=== PATIENT | male | born 1960 | race Caucasian/White ===

== ENCOUNTER 2023-12-04 16:14 | Emergency (ER) | payer OTHER, SELFPAY ==
--- NOTE | ~2023-12-04 | XR_ITS ---
EXAMINATION: XR LUMBOSACRAL SPINE CLINICAL INFORMATION: Fall, back pain COMPARISON: None available. TECHNIQUE: Three views of the lumbosacral spine. FINDINGS: The sagittal alignment is maintained. Vertebral body heights are maintained. No evidence of acute compression fractures. Multilevel disc degenerative changes, with disc height loss, endplate osteophytes. Right-sided osteophyte in the upper lumbar spine. Multilevel facet degeneration. Spinal stimulator device is noted. Visualized pelvic bones are intact. Extensive atherosclerotic vascular calcification. XR/XR lumbar spine 2-3V IMPRESSION: Moderate-severe multilevel disc degenerative changes. No radiographic evidence of acute fracture.
--- NOTE | ~2023-12-04 | CT_ITS ---
EXAMINATION: CT HEAD WITHOUT CONTRAST CT CERVICAL SPINE WITHOUT CONTRAST CLINICAL INFORMATION: Fall. Potential head strike and loss of consciousness. COMPARISON: None available. TECHNIQUE: Contiguous axial imaging was performed from the skull base to vertex without intravenous administration of contrast. Contiguous axial imaging was performed from the upper chest through the skull base without intravenous administration of contrast. Coronal and sagittal reformats were obtained at the acquisition workstation. This CT examination was performed using dose optimization techniques as appropriate, variously including the following: *Automated exposure control. *Adjustment of mA and/or kV according to patient size (this includes techniques or standardized protocols for targeted exams where dose is matched to indication/reason for exam; i.e. extremities or head). *Use of iterative reconstruction technique. DLP: 918 mGy-cm FINDINGS: Head: There is no evidence of acute intracranial hemorrhage or edematous territorial infarction. Mccarthy-white matter differentiation is preserved. Scattered and partially confluent hypoattenuation in the periventricular and deep white matter are consistent with moderate microangiopathy. Proportional prominence of the ventricles and sulcal spaces without evidence of obstructive hydrocephalus. No abnormal mass effect or midline shift. No extra-axial fluid collections. No acute soft tissue or osseous abnormalities. Mild mucosal thickening of the paranasal sinuses. Small right-sided mastoid effusion. Left-sided mastoid air cells and middle ear cavity are clear. Cervical Spine: The atlantooccipital and atlantoaxial articulations remain well aligned. Straightening of the normal cervical lordosis. Mild degenerative stepwise anterolistheses of C2-C4. Mild degenerative stepwise retrolistheses of C5-C7. Otherwise, there is anatomic alignment of the vertebral bodies and posterior elements. No evidence of acute fracture or subluxation. The vertebral body heights are maintained. Advanced degenerative disc disease at C3-C4 and from C5-T1. Facet and uncovertebral joint arthropathy leads to osseous encroachment on the neural foramina from C3-T1. There is no prevertebral soft tissue swelling. The thyroid gland and remaining cervical soft tissues are within normal limits. The lung apices demonstrate no abnormalities. CT/CT cervical spine wo IV con IMPRESSION: 1. No evidence of acute intracranial hemorrhage or edematous territorial infarction. Moderate underlying microangiopathy and generalized cerebral volume loss. 2. No evidence of acute fracture or traumatic subluxation of the cervical spine. Moderate multilevel degenerative spondyloarthropathy of the cervical spine.
--- NOTE | ~2023-12-04 | CT_ITS ---
EXAMINATION: CT ABDOMEN AND PELVIS WITH CONTRAST CLINICAL INFORMATION: Fall. Left flank pain. Clinical concern regarding splenic injury. COMPARISON: None available. TECHNIQUE: Multidetector volumetric images were obtained from the superior aspect of the liver through the pubic symphysis following administration 85 mL of Omnipaque 350 intravenous contrast. Sagittal and coronal reformatted images were obtained on the technologist's workstation. Oral contrast: No This CT examination was performed using dose optimization techniques as appropriate, variously including the following: *Automated exposure control *Adjustment of mA and/or kV according to patient size (this includes techniques or standardized protocols for targeted exams where dose is matched to indication/reason for exam; i.e. extremities or head) *Use of iterative reconstruction technique DLP: 359 mGy-cm FINDINGS: LUNG BASES: There are a few nonspecific reticular lung base opacities. Fat protrudes through the esophageal hiatus. LIVER, GALLBLADDER, AND BILIARY TREE: No evidence of liver injury. No focal liver lesion. The gallbladder is not demonstrated. The common duct is mildly prominent but there is no opaque duct calculus PANCREAS: No evidence of a pancreatic injury or peripancreatic fluid SPLEEN: No evidence of a splenic injury. No focal abnormality ADRENAL GLANDS: Within normal limits KIDNEYS AND URETERS: There is a 0.7 cm nonobstructing mid left renal calculus 7.7 cm from the skin BLADDER: No evidence of bladder injury. The bladder wall thickening is at least partially related to incomplete distention GASTROINTESTINAL TRACT: There is a oval low attenuating structure dorsal to the distal rectum. This is of uncertain etiology. A duplication cyst could give this appearance. Equivocal extension to the sacrococcygeal spine. No evidence of bowel injury. The appendix is normal. These stomach is moderately distended. The hepatic flexure is collapsed perhaps physiologic. ABDOMINAL WALL: There is a power generator in the left gluteal soft tissues with leads projecting into the spinal canal. There is no abdominal wall hernia. LYMPH NODES: There are no enlarged lymph nodes. VASCULAR: There is no abdominal aortic aneurysm. There is arterial calcification. The portal vein enhances. PELVIC VISCERA: No suspicious abnormality OSSEOUS STRUCTURES: No suspicious focal lesion. Degenerative changes in the spine. CT/CT abdomen pelvis w IV con IMPRESSION: No splenic injury. No hematoma in the left upper quadrant. Incidental nonobstructing left renal calculus. Fleischner guidelines were followed.
[2023-12-04 17:22] VITALS: BP 93/58; PULSE 80; RESP 18; TEMP 37.1; O2SAT 100; BMI 20.8
--- NOTE | 2023-12-04 17:23 | ED_ITS ---
HPI - General Adult General Chief complaint: General Medical Stated complaint: abd and lower back pain Time Seen by Provider: 12/04/23 17:53 Source: patient Mode of arrival: ambulatory Limitations: no limitations History of Present Illness HPI narrative: Patient is status post liver transplant in 1989 still drinks occasionally been drinking last 2 days has problem in walking uses cane or walker last night patient was in the basement in the dark was trying to come out to turn on the light tripped and fell landed on his back of back pain no head injury no loss of consciousness according to patient patient does not have problem with drinking and just had few beers Related Data Allergies Allergy/AdvReac Type Severity Reaction Status Date / Time morphine Allergy Unknown Verified 12/04/23 17:32 Review of Systems 2 Review of Systems: Yes all other systems are reviewed and are negative [facility] Past Medical History Surgical History (Updated 12/04/23 @ 21:59 by Dg Fernández MD) Liver transplant recipient Social History Social History Alcohol intake: current Alcohol intake frequency: a few times a week Alcohol type: beer Smoked in Last 30 Days: Yes Use of substances other than those prescribed or required for medical reasons: No Advance Directives: No Advance Directives Information Provided: No Physical Exam ED Vital Signs: Vital Signs - 24 hr 12/04/23 17:22 12/04/23 18:23 Temperature 98.7 F Pulse Rate 80 64 Respiratory Rate 18 14 Blood Pressure 93/58 L 99/65 Pulse Oximetry 100 99 Oxygen Delivery Method Room Air Room Air BMI result Body Mass Index 20.8 Appearance: Alert. Oriented X3. No acute distress. etoh+ Eyes: No pallor or icterus ENT: Pharynx normal. Oral Mucosa moist Neck: Normal inspection. Neck supple. CVS: Normal heart rate and rhythm. Pulses normal. Respiratory: No respiratory distress. Equal air entry bilateral, no wheezing/rales/rhonchi Abdomen: Soft and nontender. Bowel sounds are present, no mass palpable, no CVA tenderness Skin: Skin warm and dry. Normal skin color. Normal skin turgor. back: Diffuse tenderness to the left side no focal spine tenderness SLR negative bilaterally good range of movement Extremities: No lower extremity edema. No calf tenderness Neuro: Oriented X 3. No motor deficit. No sensory deficit.No cerebellar signs , cranial nerves II-XII intact Course Course Course Narrative: This is a rapid medical exam: Additional HPI, ROS, PE not included below will be deferred to primary provider. Patient is a 62-year-old male with history of liver transplant presenting to the ED with complaint of low back pain as well as abdominal pain. Reports issues with balance at baseline ever since the transplant, fell in basement last night. Unsure if he hit his head or lost consciousness after the fall. Abdominal pain has been for the past week, describes as diffuse. Reports diarrhea, denies vomiting. Plan: CT head and c-spine, lumbar xray, labs, UA, viral swabs Medications Administered Discontinued Medications Generic Name Dose Route Start Last Admin Trade Name Freq PRN Reason Stop Dose Admin Hydromorphone HCl 2 mg 12/04/23 18:47 12/04/23 19:25 Hydromorphone Hcl 2 Mg/Ml Vial IVPUSH 12/04/23 18:48 2 mg ONCE ONE Administration Protocol Sodium Chloride 1,000 mls @ 999 mls/hr 12/04/23 18:44 12/04/23 19:06 Ns IV 12/04/23 19:44 999 mls/hr .Q1H1M ONE Administration Magnesium Sulfate 2 gm in 50 mls @ 150 mls/hr 12/04/23 18:44 12/04/23 19:55 Magnesium Sulfate/H2o IV 12/04/23 19:03 Infused ONCE ONE Infusion Iohexol 100 ml 12/04/23 19:16 12/04/23 19:16 Iohexol 350 Mg/Ml 100 Ml Infus..Btl IV 12/04/23 19:17 85 ml ONCE ONE Administration Ondansetron HCl 4 mg 12/04/23 18:44 12/04/23 19:25 Ondansetron Hcl 4 Mg/2 Ml Vial IVPUSH 12/04/23 18:45 4 mg ONCE ONE Administration Medical Decision Making Medical Decision Making [facility] Narrative: Patient alcoholic status post liver transplant fell last night complaining of diffuse lower back pain CT scan of the negative CT head C-spine negative patient ambulate in the ER discharge patient home advised not drink alcohol Differential Diagnosis Differential Diagnoses: The differential diagnosis associated with the presentation includes As above Lab Data [facility] Lab Attestation statement: I reviewed the patient's lab results. 12/04/23 17:39 12/04/23 17:39 Labs: Lab Results 12/04/23 12/04/23 Range/Units 17:39 18:31 WBC 4.7 L (4.8-10.8) X10*3/uL RBC 3.38 L (4.60-5.80) X10*6/uL Hgb 12.5 L (14.0-18.0) g/dl Hct 36.3 L (42.0-52.0) % MCV 107.4 H (80.0-98.0) fL MCH 37.0 H (27.0-33.0) pg MCHC 34.4 (31.0-36.0) g/dl RDW 14.8 (11.0-16.0) % Plt Count 152 L (160-400) X10*3/uL MPV 9.7 (9.4-12.4) fL Immature Gran % (Auto) 0.2 (0.0-0.4) % Neut % (Auto) 47.7 (45-73) % Lymph % (Auto) 40.3 H (20-40) % Cottle % (Auto) 8.6 (2-11) % Eos % (Auto) 1.9 (0-4) % Baso % (Auto) 1.3 (0-2) % Lymph # (Auto) 1.9 (1.2-4.9) X10*3/uL Cottle # (Auto) 0.4 (0.1-1.2) X10*3/uL Eos # (Auto) 0.1 (0.0-0.4) X10*3/uL Baso # (Auto) 0.1 (0.0-0.2) X10*3/uL Abs Immat Gran (auto) 0.01 (0.00-0.03) X10*3/uL Absolute Neuts (auto) 2.2 (2.0-8.3) x10*3/uL Absolute Nucleated RBC 0.000 (0.0-0.012) X10*3/uL Nucleated RBC % (auto) 0.0 (0.0-0.2) /100WBC PT 16.0 H (11.1-13.3) SEC INR 1.3 H (0.9-1.1) Sodium 139 (135-145) mmol/L Potassium 3.3 (3.3-5.1) mmol/L Chloride 107 (96-108) mmol/L Carbon Dioxide 24 (22-29) mmol/L Anion Gap 11 L (12-20) BUN 20 H (9-16) mg/dL Creatinine 1.23 (0.5-1.4) mg/dL Estim Creat Clear Calc 57.1 Estimated GFR 59 Random Glucose 114 (60-115) mg/dL Calcium 8.2 L (8.4-10.2) mg/dL Magnesium 1.5 L (1.6-2.6) mg/dL Total Bilirubin 1.3 H (0.0-1.0) mg/dL AST 197 H (5-37) U/L ALT 93 H (0-40) U/L Alkaline Phosphatase 281 H (39-117) U/L Total Protein 6.4 L (6.5-8.0) g/dL Albumin 3.1 L (3.5-5.0) g/dL Urine Color Dark Yellow Urine Appearance Clear Urine pH 5.5 (5.0-9.0) Ur Specific [place] 1.025 (1.005-1.025) Urine Protein Negative (Neg-Trace) mg/dL Urine Glucose (UA) Negative (Negative) mg/dL Urine Ketones Trace (Negative) mg/dL Urine Blood Negative (Negative) Urine Nitrite Negative (Negative) Ur Leukocyte Esterase Negative (Negative) Urine Opiates Screen Not Detected (Not Detect) Urine Fentanyl Screen Not Detected (Not Detect) Ur Barbiturates Screen Not Detected (Not Detect) Ur Phencyclidine Scrn Not Detected (Not Detect) Ur Amphetamines Screen Not Detected (Not Detect) U Benzodiazepines Scrn Not Detected (Not Detect) Urine Cocaine Screen Not Detected (Not Detect) U Marijuana (THC) Screen POSITIVE H (Not Detect) Ethyl Alcohol 275 mg/dL Influenza Type A (PCR) NEGATIVE (Negative) Influenza Type B (PCR) NEGATIVE (Negative) RSV RNA Qual (PCR) NEGATIVE (Negative) SARS-CoV-2 RNA (RT-PCR) NEGATIVE (Negative) Independent Interpretation I performed an independent interpretation of an: CT Scan Radiology Impression Discussion of test interpretation with radiology: I have reviewed the radiologist's reading. Discharge Plan Discharge Clinical Impression: Back pain, Alcohol abuse Patient Disposition: Home, Self-Care Instructions: Abuse of Alcohol (ED), Chronic Back Pain (DC) Additional Instructions: Continue your medications and stop drinking alcohol
--- NOTE | 2023-12-04 17:32 | PC.NURSE ---
pt unable to appropriately answer questions in triage, continues to state that he is in too much pain to answer questions. reports he has more allergies but is unable to think of them at this time
[2023-12-04 17:45] LABS: Basophils Absolute Auto 0.1 X10*3/uL (0.0-0.2); Basophils Percent Auto 1.3 % (0-2); Eosinophils Absolute Auto 0.1 X10*3/uL (0.0-0.4); Eosinophils Percent Auto 1.9 % (0-4); Hematocrit 36.3 % (42.0-52.0); Hemoglobin 12.5 g/dl (14.0-18.0); Imm Gran Abs Auto 0.01 X10*3/uL (0.00-0.03); Imm Gran Pct Auto 0.2 % (0.0-0.4); Lymphocytes Absolute Auto 1.9 X10*3/uL (1.2-4.9); Lymphocytes Percent Auto 40.3 % (20-40); MANUAL DIFF FLAG NO; Mean Corpuscular HGB Conc 34.4 g/dl (31.0-36.0); Mean Corpuscular Volume 107.4 fL (80.0-98.0); Mean Platelet Volume 9.7 fL (9.4-12.4); Monocytes Absolute Auto 0.4 X10*3/uL (0.1-1.2); Monocytes Percent Auto 8.6 % (2-11); Neutrophils Absolute Auto 2.2 x10*3/uL (2.0-8.3); Neutrophils Percent Auto 47.7 % (45-73); Platelet Count 152 X10*3/uL (160-400); Red Blood Count 3.38 X10*6/uL (4.60-5.80); Red Cell Distribution Width 14.8 % (11.0-16.0); White Blood Count 4.7 X10*3/uL (4.8-10.8)
[2023-12-04 18:00] LABS: Alanine Aminotransferase 93 U/L (0-40); Albumin Level 3.1 g/dL (3.5-5.0); Alkaline Phosphatase 281 U/L (39-117); Anion Gap 11 (12-20); Aspartate Amino Transferase 197 U/L (5-37); Bilirubin Total 1.3 mg/dL (0.0-1.0); Blood Urea Nitrogen 20 mg/dL (9-16); Calcium 8.2 mg/dL (8.4-10.2); Carbon Dioxide 24 mmol/L (22-29); Chloride 107 mmol/L (96-108); Creatinine Clr Calc Pharmacy 57.1; Estimated Glomerular Filt Rate 59; Ethanol 275 mg/dL; Glucose Random 114 mg/dL (60-115); Magnesium 1.5 mg/dL (1.6-2.6); Potassium 3.3 mmol/L (3.3-5.1); Sodium 139 mmol/L (135-145); Total Protein 6.4 g/dL (6.5-8.0)
[2023-12-04 18:22] LABS: Influenza A PCR NEGATIVE (Negative); Influenza B PCR NEGATIVE (Negative); Resp Syncy Virus RNA Qual PCR NEGATIVE (Negative); SARS COV2 PCR INHOUSE NEGATIVE (Negative)
[2023-12-04 18:23] VITALS: BP 99/65; PULSE 64; RESP 14; O2SAT 99
[2023-12-04 18:35] LABS: INTERNATIONAL NORM RATIO 1.3 (0.9-1.1)
--- NOTE | 2023-12-04 18:36 | PC.NURSE ---
Patient states he fell last night in his basement on his back thing and is experiencing 10/10 back pain. Patient smells of alcohol, when asked how much alcohol he drank today patient states, like 4 beers last night and like one beer and one shot today
[2023-12-04 18:41] LABS: Appearance Urine Clear; Color Urine Dark Yellow; Glucose Urine UA Negative (Negative); Leukocyte Esterase Urine Negative (Negative); Nitrite Urine Negative (Negative); PH 5.5 (5.0-9.0); Specific Gravity - Urine 1.025 (1.005-1.025); Urine Blood Negative (Negative); Urine Ketones Trace mg/dL (Negative); Urine Protein Negative (Neg-Trace)
[2023-12-04 18:46] LABS: Amphetamine Screen Urine Not Detected (Not Detect); Barbiturates, Urine Not Detected (Not Detect); Benzodiazepines Screen Urine Not Detected (Not Detect); Cannabinoid Screen Urine POSITIVE (Not Detect); Cocaine Screen Urine Not Detected (Not Detect); Fentanyl, urine Not Detected (Not Detect); Opiate Screen Urine Not Detected (Not Detect); Phencyclidine Screen Urine Not Detected (Not Detect)
[2023-12-04] MEDS: 0.9 % Sodium Chloride 1,000 ML 999 ML IV (19:06)
[2023-12-04] MEDS: iohexoL 350 MG/ML 100 ML INFUS..BTL IV (19:16)
--- NOTE | 2023-12-04 19:16 | PC.NURSE ---
This RN assumed pt care @ 1900. Pt with CT. Plan of care ongoing.
[2023-12-04] MEDS: HYDROmorphone HCl 2 MG/ML VIAL IVPUSH (19:25)
[2023-12-04] MEDS: ondansetron HCL 4 MG/2 ML VIAL IVPUSH (19:25)
[2023-12-04] MEDS: Magnesium Sulfate/H2O 2 GM/50 ML PIGGYBACK IV (19:26)
--- NOTE | 2023-12-04 19:32 | PC.NURSE ---
Pt medicated per nov. Plan of care ongoing.
--- NOTE | 2023-12-04 23:55 | PC.NURSE ---
Pt continuously attempting to get out of bed and leave. Pt intoxicated and unsteady on his feet. Pt redirected back into bed by RN's and ore charger. Plan of care ongoing.
[2023-12-05 03:34] VITALS: BP 117/63; PULSE 80; RESP 12; TEMP 36.8; O2SAT 97
[2023-12-05 03:37] VITALS: BP 117/63; PULSE 81; RESP 16; TEMP 36.8; O2SAT 99
== END 2023-12-05 03:38 | disposition home or self-care (01) ==
PROVIDERS: Registered Nurse Emergency; Emergency Provider Internal Medicine; PCP Internal Medicine
DX: M54.9 Dorsalgia, unspecified (principal); F10.10 Alcohol abuse, uncomplicated; Y90.8 Blood alcohol level of 240 mg/100 ml or more; Z91.81 History of falling; Z11.52 Encounter for screening for COVID-19; Z20.828 Contact with and (suspected) exposure to other viral communicable diseases
CPT/HCPCS: 0241U; 36415; 70450; 72100; 72125; 74177; 80053; 80307; 81003; 83735; 85025; 85610; 96361; 96365; 96375; 99284; J1170; J2405; J3475; Q9967